=== PATIENT | male | born 1985 | race Caucasian/White ===

== ENCOUNTER 2018-07-02 01:01 | Emergency (ER) | payer BC ==
[2018-07-02 01:53] VITALS: BP 115/65; PULSE 64; RESP 18; TEMP 97.9; O2SAT 99
--- NOTE | 2018-07-02 02:45 | ED PDOC ---
HPI: Abdomen Time Seen by Provider: 07/02/18 01:09 Chief Complaint (Nursing): Abdominal Pain Chief Complaint (Provider): Abdominal Pain History Per: Patient History/Exam Limitations: no limitations Onset/Duration Of Symptoms: Days Current Symptoms Are (Timing): Still Present Location Of Pain/Discomfort: RUQ Quality Of Discomfort: "Pain" Last Bowel Movement: Today Additional Complaint(s): 32 year old healthy male presents to the ED for an evaluation of abdominal pain. Patient went to [facility] on 06/[address] where he received a CT scan that was negative asper pt. Patient reports of taking miralax for constipation without improvement. Also reports of worsening abdominal pain prompting for an ED visit. He had small hard bowel movement this afternoon. Otherwise, denies rash, nausea, vomiting or fever. PMD: [facility] Past Medical History Reviewed: Historical Data, Nursing Documentation, Vital Signs Vital Signs: Last Vital Signs Temp 97.9 F 07/02/18 01:48 Pulse 64 07/02/18 01:48 Resp 18 07/02/18 01:48 BP 115/65 07/02/18 01:48 Pulse Ox 99 07/02/18 01:48 Primary Care Provider: FAMILY PROVIDER,NO - Medical History PMH: No Chronic Diseases - Surgical History Surgical History: No Surg Hx - Family History Family History: States: Unknown Family Hx - Social History Current smoker - smoking cessation education provided: No Alcohol: None Drugs: Denies - Home Medications Home Medications: Ambulatory Orders Medication Instructions Recorded Docusate Sodium [Colace] 100 mg PO BID PRN #10 capsule 07/02/18 - Allergies Allergies/Adverse Reactions: Allergies Allergy/AdvReac Type Severity Reaction Status Date / Time No Known Allergies Allergy Verified 07/02/18 01:53 Review of Systems ROS Statement: Except As Marked, All Systems Reviewed And Found Negative Constitutional: Negative for: Fever Gastrointestinal: Positive for: Abdominal Pain. Negative for: Nausea, Vomiting Skin: Negative for: Rash Physical Exam - Reviewed Nursing Documentation Reviewed: Yes Vital Signs Reviewed: Yes - Physical Exam Appears: Positive for: Non-toxic, No Acute Distress Head Exam: Positive for: ATRAUMATIC, NORMAL INSPECTION, NORMOCEPHALIC Skin: Positive for: Normal Color, Warm, DRY Eye Exam: Positive for: EOMI, Normal appearance, PERRL ENT: Positive for: Normal ENT Inspection Neck: Positive for: Normal, Painless ROM, Supple. Negative for: Decreased ROM Cardiovascular/Chest: Positive for: Regular Rate, Rhythm. Negative for: Murmur Respiratory: Positive for: Normal Breath Sounds. Negative for: Decreased Breath Sounds, Wheezing, Respiratory Distress Gastrointestinal/Abdominal: Positive for: Soft, Tenderness (right upper quadrant ). Negative for: Guarding, Rebound Back: Positive for: Normal Inspection. Negative for: L CVA Tenderness, R CVA Tenderness Extremity: Positive for: Normal ROM. Negative for: Tenderness, Pedal Edema, Deformity Neurological/Psych: Positive for: Awake, Alert, Normal Tone, Oriented (x3) - Laboratory Results Result Diagrams: 07/02/18 03:06 07/02/18 03:06 - ECG O2 Sat by Pulse Oximetry: 99 (RA) Pulse Ox Interpretation: Normal Medical Decision Making Medical Decision Making: Time: 02:05 Impression: abdominal pain rule out pancreatitis, gastritis, gallbladder disease Plan: --CMP --Lipase --CBC w/ differential --Gallbladder US 04:24 Ultrasound of the gallbladder. Indication: Constipation, diet restriction during recent travel. Technique: Real-time ultrasound images were obtained. Findings: Liver measures 16 cm. Unremarkable gallbladder. Nondilated common bile duct measuring 3.7 mm. Unremarkable pancreas. Unremarkable aorta. Unremarkable IVC. Unremarkable right kidney measuring 11.1x4.1x5.6 cm. Impression: Unremarkable exam. Electronically signed on July 02, 2018 4:23:10 AM EDT by: Anton Sánchez M.D., Certified by ABR, MSK, Neuroradiology pt made aware of results of CT and labs. feels improve don reeval, abdomen non tender states will follow up as outpt. Scribe Attestation: Documented by Enzo Barnett, acting as a scribe for Kenna Guidry MD. Provider Scribe Attestation: All medical record entries made by the Scribe were at my direction and personally dictated by me. I have reviewed the chart and agree that the record accurately reflects my personal performance of the history, physical exam, medical decision making, and the department course for this patient. I have also personally directed, reviewed, and agree with the discharge instructions and disposition. Disposition - Clinical Impression Clinical Impression: Abdominal pain, Constipation - Disposition Referrals: [facility] [Outside] [facility] [Outside] Condition: IMPROVED Additional Instructions: follow up with the clinic in 2 days return to the ED withany worsening or concerning symptoms continue high fiber diet Prescriptions: Docusate Sodium [Colace] 100 mg PO BID PRN #10 capsule PRN Reason: Constipation Instructions: Constipation, Adult (DC) Forms: [facility] (Namibian)
[2018-07-02 03:22] LABS: ALB/GLOB RATIO 1.5 (1.0-2.1); ALBUMIN 3.8 g/dL (3.5-5.0); ALT/SGPT 32 U/L (21-72); AST/SGOT 37 U/L (17-59); BLOOD UREA NITROGEN 13 mg/dl (9-20); CALCIUM 8.6 mg/dL (8.4-10.2); GFR NON-AFRICAN AMERICAN > 60
[2018-07-02 04:00] LABS: BASO % 0.2 % (0.0-2.0); EOS # 0.2 K/uL (0.0-0.7); EOS % 3.1 % (0.0-4.0); HEMOGLOBIN 14.2 g/dL (12.0-18.0); LYMPH # 1.6 K/uL (1.0-4.3); LYMPH % 31.9 % (20.0-40.0); MEAN CELL VOLUME 95.2 fl (80.0-94.0); MEAN CORPUSCULAR HEMOGLOBIN 32.3 pg (27.0-31.0); MEAN PLATELET VOLUME 7.7 fl (7.2-11.7); MONO # 0.4 K/uL (0.0-0.8); NEUT # 2.8 K/uL (1.8-7.0); NEUT % 56.8 % (50.0-75.0); NRBC % 0.1 % (0.0-0.0); RBC 4.38 Mil/uL (4.40-5.90); RED CELL DISTRIBUTION WIDTH 13.1 % (11.5-14.5)
[2018-07-02 05:06] LABS: LIPASE 318 U/L (23-300)
--- NOTE | 2018-07-02 08:14 | US ---
Date of service: 07/02/2018 HISTORY: ruq abd pain right upper quadrant abdominal pain. COMPARISON: None. TECHNIQUE: Sonographic evaluation of the right upper quadrant of the abdomen. FINDINGS: LIVER: Measures 16.0 cm in length. Patent portal and hepatic venous systems. Portal venous flow: Hepatopetal. echogenicity of the liver parenchyma. No mass. No intrahepatic bile duct dilatation. GALLBLADDER: Unremarkable. No gallstones. COMMON BILE DUCT: Measures 3.7 mm. No stones. No dilatation. PANCREAS: Unremarkable as visualized. No mass. No ductal dilatation. RIGHT KIDNEY: Measures 4.1 x 11.1 cm in length. Normal echogenicity. No calculus, mass, or hydronephrosis. AORTA: No aneurysmal dilatation. IVC: Unremarkable. OTHER FINDINGS: None . IMPRESSION: No significant or acute findings to account for/ related to the clinical presentation. Concordant findings (preliminary report) provided by [facility].
== END 2018-07-02 04:35 | disposition home or self-care (01) ==
LOC: H.ER 01:01
DX: R10.9 Unspecified abdominal pain (principal); K59.00 Constipation, unspecified